=== PATIENT | female | born 1965 | race Caucasian/White ===

== ENCOUNTER 2018-02-20 14:46 | Outpatient (CLI) | payer BC ==
--- NOTE | 2018-02-20 16:12 | RAD ---
LUMBAR SPINE: 02/20/18 Three views. Neutral, flexion and extension lateral views obtained. INDICATIONS: Low back pain. There appear to be six lumbar type vertebrae with L6 being transitional. There is loss of disc space at L5-L6 and at L6-S1. Slight posterolisthesis at L5-L6 and slight anterolisthesis of L6-S1, better d elineated on MRI performed today. No significant change in alignment noted on flexion or extension. F acet hypertrophy is prominent in the lower lumbar spine. Mild degenerative osteophytes. IMPRESSION: Six lumbar type vertebra as described above with slight posterolisthesis of L5-L6 and slight anteroli sthesis of L6-S1. Degenerative changes as noted. POS: [facility]
--- NOTE | 2018-02-20 16:19 | MRI ---
MR OF THE LUMBAR SPINE WITHOUT CONTRAST: 02/20/18 INDICATION: History of anterolisthesis with low back pain and right buttock pain for several years. TECHNIQUE: Multiplanar and multisequence MR images were obtained of the lumbar spine without IV contrast. Comparisons are made with an abdominal radiograph dated 07/24/16 and a lateral flexion and extension r adiographic evaluation dated 02/20/18. FINDINGS: There is very subtle retrolisthesis of L5 on S1. There is partial lumbarization of S1. The conus is s een to terminate approximately at L1-L2. There are bony hemangioma within L4 and L5. There is a small Schmorl's node seen at the inferior aspect of L1. No appreciable central canal or neural foraminal seen at S1 and S2. At L5-S1, there is an asymmetric to the right broad based bulge with loss of disc space height induci ng mild right neural foraminal narrowing. At the L4-5 level, there is mild facet joint degenerative changes and broad based bulge but no apprec iable central canal or neural foraminal narrowing. At the L3-4 level, there is a mild broad based bulge and facet joint degenerative change without appr eciable central canal or neural foraminal narrowing. At L2-3, there is no appreciable central canal or neural foraminal narrowing. There is mild broad bas ed bulge. At L1-2, there is a mild broad based bulge without appreciable central canal or neural foraminal narr owing. IMPRESSION: 1. Mild spondylosis of the lumbar spine. 2. Mild retrolisthesis of L5 on S1. 3. Mild right neural foraminal narrowing at L5-S1. 4. Partial lumbarization of S1. POS: [facility]
== END 2018-02-20 14:47 | disposition home or self-care (01) ==
LOC: TBSIIMAG 14:46
PROVIDERS: ATTEND Neurological Surgery
DX: Q76.2 Congenital spondylolisthesis (principal); M47.812 Spondylosis without myelopathy or radiculopathy, cervical region; M43.17 Spondylolisthesis, lumbosacral region; M48.061 Spinal stenosis, lumbar region without neurogenic claudication; M43.16 Spondylolisthesis, lumbar region
CPT/HCPCS: 72100; 72148

== ENCOUNTER 2018-05-09 08:17 | Outpatient (CLI) | payer BC ==
--- NOTE | 2018-05-21 09:14 | MMO ---
BILATERAL SCREENING MAMMOGRAM: COMPARISON: 06/24/2013. HISTORY: A 52-year-old female. Routine screening mammography. TECHNIQUE: CC and MLO views of both breasts are submitted for interpretation. This patient's mammogram is revie wed with the assistance of computer-aided detection. FINDINGS: Breasts are composed of scattered fibroglandular tissue. Bilaterally, no suspicious dominant mass, a rchitectural distortion, or suspicious calcification. There are benign-appearing calcifications in the left breast. IMPRESSION: BI-RADS category 2, benign findings. RECOMMENDATION: Annual mammogram. BIRADS 2: Benign Finding(s) Routine annual screening mammography (for women over age 40) POS: [facility]
== END 2018-05-09 08:18 | disposition home or self-care (01) ==
LOC: SCSMAMMO 08:17
PROVIDERS: ATTEND Family Medicine
DX: Z12.31 Encounter for screening mammogram for malignant neoplasm of breast (principal)
CPT/HCPCS: 77067

== ENCOUNTER 2018-08-08 07:06 | Day surgery (SDC) | payer BC ==
[2018-08-07 11:35] VITALS: BMI 36.6
[2018-08-08] MEDS ORDERED: PROPOFOL 20 ML ONE (07:55)
[2018-08-08 08:39] LABS: Anion Gap 13 mmol/L (10-20); BUN (Urea Nitrogen) 8 mg/dL (7.0-18.7); Calc. Creatinine Clearance 143 mL/min (70-130); Calcium 9.9 mg/dL (7.8-10.44); Carbon Dioxide 28 mmol/L (22-29); Chloride 102 mmol/L (98-107); Estimated GFR-MDRD 86; Glucose 95 mg/dL (70-105); Potassium 4.4 mmol/L (3.5-5.1); Sodium 139 mmol/L (136-145)
[2018-08-08 08:44] LABS: #Basophils 0.1 thou/uL (0.0-0.2); #Lymphocytes 3.5 thou/uL (1.20-3.40); #Monocytes 0.8 thou/uL (0.11-0.59); #Neutrophils 6.7 thou/uL (1.40-6.50); %Eosinophils 0.4 % (0.0-10.0); %Lymphocytes 31.3 % (21.0-51.0); %Monocytes 6.9 % (0.0-10.0); %Neutrophils 60.4 % (42.0-75.0); Hemoglobin 14.8 g/dL (12.0-16.0); Mean Corpuscular HGB CONC 34.5 g/dL (32.0-36.0); Mean Corpuscular Hemoglobin 32.1 pg (27.0-31.0); Mean Corpuscular Volume 93.1 fL (78.0-98.0); Mean Platelet Volume 9.8 fL (7.4-10.4); Platelet Count 165 thou/uL (130-400); RBC Distribution Width 12.4 % (11.5-14.5); Red Blood Cell (RBC) Count 4.62 mill/uL (4.20-5.40); White Blood Cell (WBC) Count 11.1 thou/uL (4.8-10.8)
[2018-08-08] MEDS ORDERED: Fentanyl 100 MCG/2 ML VIAL ONE (10:17)
[2018-08-08] MEDS ORDERED: Bupivacaine HCl 0.5%/Epinephrine 1:200,000/PF 30 ml Vial ONE (15:17)
[2018-08-08] MEDS ORDERED: Lidocaine 2% w/Epinephrine 1:200K 20 ML VIAL ONE (15:17)
[2018-08-08] MEDS ORDERED: Ondansetron PF 4 MG/2 ML Vial ONE (15:47)
[2018-08-08] MEDS ORDERED: Lidocaine 1% PF 5 ML VIAL ONE (15:47)
[2018-08-08] MEDS ORDERED: Ketorolac Tromethamine 30 MG/ML VIAL ONE (15:47)
[2018-08-08] MEDS ORDERED: PROPOFOL 200 MG/20 ML VIAL ONE (15:47)
--- NOTE | 2018-08-08 16:43 | OP ---
DATE OF PROCEDURE: 08/08/2018 PREOPERATIVE DIAGNOSIS: Left knee medial meniscus tear. POSTOPERATIVE DIAGNOSES: 1. Complex tear of posterior horn of medial meniscus. 2. 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 3. Grade 3 changes on the patella. PROCEDURES PERFORMED: 1. Left knee arthroscopy with partial medial meniscectomy. 2. Debridement and shaving of patellofemoral joint. SKILLS INSTRUCTOR: None. ESTIMATED BLOOD LOSS: Minimal. COMPLICATIONS: None. ANESTHESIA: She did have a general anesthetic as well as a local knee block. DISPOSITION: She went to recovery in stable condition. INDICATIONS: This is a 52-year-old female, who comes in complaining of pain, catching, and swelling of the knee. She has failed to manage this nonoperatively and at this time wished to have surgery. DESCRIPTION OF PROCEDURE: After all appropriate consent forms were explained and signed, she was taken back to the operative room and at this time was given general anesthetic. Once the level of anesthesia was appropriate, tourniquet was placed on the left thigh. The leg was then prepped and draped in standard surgical fashion. The limb was exsanguinated and the tourniquet was taken up to 300 mmHg. Inferolateral portal was established. Scope was placed into the knee joint. Needle localization technique was then used to make a medial working portal. Diagnostic arthroscopy commenced in the notch. ACL and PCL were probed and found to be intact. The medial compartment found the femur to have some small areas of grade 2 chondromalacia. No treatment was needed. Tibial plateau was in good condition. There was a complex tear of the posterior horn of the medial meniscus and a partial meniscectomy was performed using meniscal biter shaver back to a stable base. The lateral compartment was intact. Gutters were swept through, no loose bodies were noted. The trochlea was overall in good condition, but there was some significant grade 3 chondromalacia on the patella. Therefore, a chondrotome was introduced and was used to take down the unstable flaps off the patella. Once this was done, the scope was removed and knee was drained. Portals were closed with simple nylon stitch. Bulky sterile dressing was applied. Tourniquet was let down. Toes pinked up nicely. The patient was awakened, taken to the recovery room in stable condition. All counts correct at the end of the case. She received preoperative IV antibiotics. Job ID: [id number]
== END 2018-08-08 12:15 | disposition home or self-care (01) ==
LOC: SDC 07:06
PROVIDERS: ATTEND Orthopaedic Surgery
PROC: 0SBD4ZZ Excision of Left Knee Joint, Percutaneous Endoscopic Approach (ICD-10-PCS; principal; 2018-08-08)
DX: S83.232A Complex tear of medial meniscus, current injury, left knee, initial encounter (principal); M22.42 Chondromalacia patellae, left knee; M17.12 Unilateral primary osteoarthritis, left knee; Z79.899 Other long term (current) drug therapy
CPT/HCPCS: 36415; 80048; 85025; 93005; 93010; J0670; J0690; J1885; J2001; J2405; J2704; J3010

== ENCOUNTER 2022-11-28 10:56 | Outpatient (CLI) | payer BC | END 2022-11-28 10:57 | disposition home or self-care (01) | LOC: LABBT 10:56 | PROVIDERS: ATTEND Orthopaedic Surgery | DX: Z01.818 Encounter for other preprocedural examination (principal); M17.12 Unilateral primary osteoarthritis, left knee | CPT/HCPCS: 71046; 93005; 93010 ==

== ENCOUNTER 2022-12-03 05:54 | Observation (INO) | payer BC ==
[2022-11-28 11:51] VITALS: BMI 41.1
[2022-11-28 12:32] LABS: Bilirubin Neg (Negative); Blood, Urine 10 (Negative); Clarity Clear (Clear); Glucose, Urine (Dipstick) Normal (Negative); Ketone, Urine Negative (Negative); Leukocyte 100 (Negative); Nitrite Negative (Negative); Protein, Urine (Dipstick) Negative (Neg-Trace); Specific Gravity, Urine 1.025 (1.005-1.030); Urobilinogen Normal mg/dL (Less than 2)
[2022-11-28 12:48] LABS: #Basophils 0.1 10x3/uL (0.0-0.2); #Eosinphils 0.2 10x3/uL (0.0-0.5); #Monocytes 0.9 10x3/uL (0.0-1.1); %Basophils 0.6 % (0.0-2.0); %Lymphocytes 37.9 % (18.0-47.0); %Monocytes 7.5 % (0.0-10.0); %Neutrophils 51.3 % (40.0-75.0); Hematocrit 43.9 % (34.9-44.5); Hemoglobin 14.5 g/dL (12.0-15.5); Mean Corpuscular Hemoglobin 31.5 pg (27.0-33.0); Mean Corpuscular Volume 95.4 fl (81.6-98.3); Mean Platelet Volume 10.9 fl (7.4-10.4); Platelet Count 198 10x3/uL (150-450); RBC Distribution Width 13.4 % (11.5-14.5); White Blood Cell (WBC) Count 11.8 10x3/uL (3.5-10.5)
[2022-11-28 12:54] LABS: Prothrombin Time 10.4 sec (9.5-12.1)
[2022-11-28 13:04] LABS: Anion Gap 19 mmol/L (10-20); BUN (Urea Nitrogen) 20 mg/dL (9.8-20.1); Calc. Creatinine Clearance 0 mL/min (70-130); Calcium 8.9 mg/dL (7.8-10.44); Carbon Dioxide 25 mmol/L (22-29); Chloride 106 mmol/L (98-107); Estimated GFR 79; Glucose 80 mg/dL (70-105); Potassium 4.6 mmol/L (3.5-5.1); Sodium 145 mmol/L (136-145)
[2022-12-03] MEDS ORDERED: fentaNYL PF 100 MCG/2 ML SYRINGE ONE (06:25)
[2022-12-03] MEDS ORDERED: Midazolam HCl 2 mg/2 ml Vial ONE (06:25)
[2022-12-03] MEDS ORDERED: Bupivacaine PF 0.5% 30 ML VIAL ONE ×2 (06:26→08:18)
[2022-12-03] MEDS ORDERED: Sodium Chloride 0.9% 100 ML ONE ×2 (06:37→06:52)
[2022-12-03] MEDS ORDERED: Vancomycin (BATCH) 1.5 GRAM/300 ML BAG ONE (06:37)
[2022-12-03] MEDS ORDERED: Tranexamic Acid 1,000 MG/10 ML VIAL ONE ×2 (06:37→09:38)
[2022-12-03] MEDS ORDERED: ePHEDrine Sulfate 50 MG/10 ML VIAL ONE (06:46)
[2022-12-03] MEDS ORDERED: Bupivacaine HCl 0.5%/Epinephrine 1:200,000/PF 30 ml Vial ONE (06:46)
[2022-12-03] MEDS ORDERED: PROPOFOL 200 MG/20 ML VIAL ONE (06:46)
[2022-12-03] MEDS ORDERED: Dexamethasone 20 MG/5 ML VIAL ONE (06:46)
[2022-12-03] MEDS ORDERED: Glycopyrrolate 0.2 MG/ML 5 ML SYRINGE ONE (06:46)
[2022-12-03] MEDS ORDERED: Ondansetron PF 4 MG/2 ML Vial ONE (06:46)
[2022-12-03] MEDS ORDERED: CEFAZOLIN 2 GM VIAL ONE (06:52)
[2022-12-03] MEDS ORDERED: Dexmedetomidine 200 MCG/2 ML VIAL ONE (07:11)
[2022-12-03] MEDS ORDERED: fentaNYL 50 mcg/mL 1 mL Vial SLOW IVP PRN (08:09)
[2022-12-03] MEDS ORDERED: fentaNYL 50 mcg/mL 1 mL Vial ONE (08:14)
[2022-12-03] MEDS ORDERED: Ropivacaine 0.2% 550 ML 550 ML NERVE BLCK SCH (08:15)
[2022-12-03] MEDS ORDERED: traMADol HCl 50 MG TAB PO PRN ×2 (08:15)
[2022-12-03] MEDS ORDERED: HYDROcodone/Acetaminophen 10/325 mg Tablet PO PRN ×2 (08:15)
[2022-12-03] MEDS ORDERED: Zolpidem Tartrate 5 MG TAB PO PRN ×2 (08:15→09:04)
[2022-12-03] MEDS ORDERED: Ondansetron PF 4 MG/2 ML Vial IVP PRN ×2 (08:15→09:04)
[2022-12-03] MEDS ORDERED: Promethazine HCl 25 MG/ML VIAL IM PRN ×2 (08:15→09:04)
[2022-12-03] MEDS ORDERED: diphenhydrAMINE 25 MG CAP PO PRN (09:04)
[2022-12-03] MEDS ORDERED: Acetaminophen 325 MG TAB PO PRN (09:04)
[2022-12-03] MEDS ORDERED: Non-Formulary Item 1 EACH (Tizanidine Hcl [Tizanidine Hcl] 4 MG Capsule) PO PRN (09:05)
[2022-12-03] MEDS ORDERED: Non-Formulary Item 1 EACH (Fexofenadine Hcl [Allegra Allergy] 180 MG Tablet) PO PRN (09:05)
[2022-12-03] MEDS ORDERED: Tranexamic Acid 1,000 MG in Sodium Chloride 0.9% 100 ML IVPB SCH (09:15)
[2022-12-03] MEDS ORDERED: Loratadine 10 MG TAB PO PRN (09:26)
[2022-12-03] MEDS ORDERED: tiZANidine HCl 4 MG TAB PO PRN (09:27)
[2022-12-03] MEDS: Sodium Chloride 0.9% 1,000 ML IV SCH ×2 (12:26→20:10)
[2022-12-03] MEDS: Ketorolac Tromethamine 30 MG/ML VIAL IVP SCH ×2 (12:26→17:31)
[2022-12-03] MEDS: CEFAZOLIN 2 GM in Sodium Chloride 0.9% 100 ML IVPB SCH ×2 (12:27→21:31)
[2022-12-03] MEDS ORDERED: Vancomycin HCl 1.5 GM in Sodium Chloride 0.9% 250 ML 300 ML IVPB SCH (18:00)
[2022-12-03] MEDS ORDERED: Non-Formulary Item 1 EACH (Quetiapine Fumarate [Seroquel] 50 MG Tablet) PO SCH (21:00)
[2022-12-03] MEDS: Sertraline 100 MG TAB PO SCH (21:32)
[2022-12-03] MEDS: Metoprolol Tartrate 100 MG TAB PO SCH (21:32)
[2022-12-03] MEDS: Senokot S 8.6-50 MG TAB PO SCH (21:32)
[2022-12-03] MEDS: Aspirin 81 mg Enteric Coated Tablet PO SCH (21:32)
[2022-12-03] MEDS: Gabapentin 300 MG CAP PO SCH (21:32)
[2022-12-03] MEDS: Ferrous Gluconate 324 MG TAB PO SCH (21:33)
[2022-12-03] MEDS: QUEtiapine 25 MG TAB PO SCH (21:33)
[2022-12-04] MEDS: Ketorolac Tromethamine 30 MG/ML VIAL IVP SCH ×4 (00:16→18:08)
[2022-12-04 05:48] LABS: Hematocrit 35.2 % (36.0-47.0); Hemoglobin 11.4 g/dL (12.0-16.0); Mean Corpuscular HGB CONC 32.4 g/dL (32.0-36.0); Mean Corpuscular Hemoglobin 32.2 pg (27.0-31.0); Mean Corpuscular Volume 99.4 fl (78.0-98.0); Mean Platelet Volume 10.5 fL (7.4-10.4); Platelet Count 175 10x3/uL (130-400); RBC Distribution Width 13.5 % (11.5-14.5); Red Blood Cell (RBC) Count 3.54 mill/uL (4.20-5.40); White Blood Cell (WBC) Count 14.8 10x3/uL (4.8-10.8)
[2022-12-04] MEDS: Sodium Chloride 0.9% 1,000 ML IV SCH ×2 (06:46→18:22)
[2022-12-04] MEDS: Aspirin 81 mg Enteric Coated Tablet PO SCH ×2 (08:17→19:53)
[2022-12-04] MEDS: Senokot S 8.6-50 MG TAB PO SCH ×2 (08:17→19:50)
[2022-12-04] MEDS: Multivitamin W/ Minerals 1 TAB PO SCH (08:17)
[2022-12-04] MEDS: Ferrous Gluconate 324 MG TAB PO SCH ×2 (08:17→19:53)
[2022-12-04] MEDS: QUEtiapine 25 MG TAB PO SCH (19:51)
[2022-12-04] MEDS: Gabapentin 300 MG CAP PO SCH (19:52)
[2022-12-04] MEDS: Sertraline 100 MG TAB PO SCH (19:53)
[2022-12-04] MEDS: Metoprolol Tartrate 100 MG TAB PO SCH (22:18)
[2022-12-05] MEDS: Ketorolac Tromethamine 30 MG/ML VIAL IVP SCH ×2 (00:06→06:09)
[2022-12-05] MEDS: Sodium Chloride 0.9% 1,000 ML IV SCH (00:19)
[2022-12-05] MEDS: Aspirin 81 mg Enteric Coated Tablet PO SCH (08:23)
[2022-12-05] MEDS: Ferrous Gluconate 324 MG TAB PO SCH (08:23)
[2022-12-05] MEDS: Multivitamin W/ Minerals 1 TAB PO SCH (08:23)
[2022-12-05] MEDS: Senokot S 8.6-50 MG TAB PO SCH (08:23)
[2022-12-05 08:50] LABS: Hematocrit 37.9 % (36.0-47.0); Hemoglobin 12.3 g/dL (12.0-16.0); Mean Corpuscular HGB CONC 32.5 g/dL (32.0-36.0); Mean Corpuscular Hemoglobin 32.4 pg (27.0-31.0); Mean Corpuscular Volume 99.7 fl (78.0-98.0); Mean Platelet Volume 10.4 fL (7.4-10.4); Platelet Count 173 10x3/uL (130-400); RBC Distribution Width 14.1 % (11.5-14.5); White Blood Cell (WBC) Count 14.7 10x3/uL (4.8-10.8)
[2022-12-05 11:55] VITALS: BP 141/84; TEMP 98.3
== END 2022-12-05 14:23 | disposition home or self-care (01) ==
LOC: SDC 05:54 → SJJU 10:51
PROVIDERS: ADMIT Orthopaedic Surgery; ATTEND Orthopaedic Surgery
PROC: 0SRD0JZ Replacement of Left Knee Joint with Synthetic Substitute, Open Approach (ICD-10-PCS; principal; 2022-12-03)
DX: M17.12 Unilateral primary osteoarthritis, left knee (principal); Z87.442 Personal history of urinary calculi; Z98.51 Tubal ligation status
CPT/HCPCS: 36415; 80048; 81003; 85025; 85027; 85610; 86850; 86900; 86901; 87081; A4306; C1776; J1100; J1885; J2250; J2405; J2704; J2795; J3010; J3370; J3490; J7050; S0020